=== PATIENT | female | born 1985 | race Caucasian/White ===

== ENCOUNTER 2022-01-26 11:31 | Emergency (ER) | payer MEDICAID | END 2022-01-26 13:00 | disposition home or self-care (01) | LOC: MW.ED 11:31 | DX: M70.841 Other soft tissue disorders related to use, overuse and pressure, right hand (principal); F17.210 Nicotine dependence, cigarettes, uncomplicated; Z88.0 Allergy status to penicillin | CPT/HCPCS: 29130; 73140-26-F5; 73140-F5; 99283 ==